=== PATIENT | female | born 1985 | race Caucasian/White ===

== ENCOUNTER 2017-10-13 14:24 | Emergency (ER) | payer MEDICAID, SELFPAY, OTHER ==
[2017-10-13] MEDS: NS 1,000 ML IV (14:58)
[2017-10-13] MEDS: ASPIRIN 81 MG CHEW TABLET PO (15:00)
[2017-10-13] MEDS: GI COCKTAIL 50ML BTL(HYOSCYAMINE/MAALOX/LIDOCAINE VISCOUS)(1:3:1) PO (15:05)
[2017-10-13 15:10] LABS: BASO % 0.7 % (0.0-1.0); EOS % 0.5 % (0.0-3.0); HEMATOCRIT 36.5 % (36.0-47.0); HEMOGLOBIN 12.7 g/dl (12.0-16.0); IMMATURE GRANULOCYTE % 0.4 % (0-0); LYMPH # 1.8 10^3/uL (1.5-4.5); LYMPH % 32.6 % (24.0-44.0); MEAN CORPUSCULAR HEMOGLOBIN 30.7 pg (27.0-33.0); MEAN CORPUSCULAR HGB CONC 34.8 g/dl (32.0-36.5); MEAN CORPUSCULAR VOLUME 88.2 fl (80.0-96.0); MONO # 0.4 10^3/uL (0.0-0.8); MONO % 6.4 % (0.0-5.0); NEUTROPHILS # 3.2 10^3/uL (1.8-7.7); NEUTROPHILS % 59.4 % (36.0-66.0); PLATELET COUNT, AUTOMATED 217 10^3/uL (150-450); RED BLOOD COUNT 4.14 10^6/uL (4.00-5.40); RED CELL DISTRIBUTION WIDTH 11.6 % (11.5-14.5); WHITE BLOOD COUNT 5.5 10^3/uL (4.0-10.0)
[2017-10-13 15:17] LABS: CONTROL LINE HCG INT CTR LINE PRESENT; HCG, SERUM QUALITATIVE NEGATIVE (NEGATIVE)
[2017-10-13 15:18] LABS: INR 1.07
[2017-10-13 15:21] LABS: D-DIMER QUANT 376.3 ng/ml (<500)
[2017-10-13 15:31] LABS: ALBUMIN 4.2 GM/DL (3.2-5.2); ALKALINE PHOSPHATASE 62 U/L (45-117); ALT/SGPT 16 U/L (12-78); ANION GAP 9 MEQ/L (8-16); AST/SGOT 11 U/L (7-37); BILIRUBIN,DIRECT 0.1 MG/DL (0.0-0.2); BILIRUBIN,TOTAL 0.5 MG/DL (0.2-1.0); BLOOD UREA NITROGEN 9 MG/DL (7-18); CALCIUM LEVEL 8.3 MG/DL (8.5-10.1); CARBON DIOXIDE LEVEL 26 MEQ/L (21-32); CHLORIDE LEVEL 107 MEQ/L (98-107); CPK CREATINE PHOSPHOKINASE 91 U/L (26-192); CREATININE FOR GFR 0.63 MG/DL (0.55-1.02); GLOMERULAR FILTRATION RATE > 60.0 (>60); GLUCOSE, FASTING 81 MG/DL (70-105); MB/CK RELATIVE INDEX 1.09 (< OR =4); POTASSIUM SERUM 3.7 MEQ/L (3.5-5.1); SODIUM LEVEL 142 MEQ/L (136-145); TOTAL PROTEIN 7.2 GM/DL (6.4-8.2); TROPONIN I < 0.02 NG/ML (< 0.10)
== END 2017-10-13 16:24 | disposition home or self-care (01) ==
LOC: M ED 14:24
DX: R07.89 Other chest pain (principal); Z82.49 Family history of ischemic heart disease and other diseases of the circulatory system
CPT/HCPCS: 71046

== ENCOUNTER → 2017-10-19 | Outpatient (CLI) | payer MEDICAID ==
[2017-10-19 14:04] LABS: VITAMIN B12 LEVEL 406 PG/ML
[2017-10-19 14:05] LABS: FOLATE 11.7 NG/ML
[2017-10-21 00:06] LABS: HOMOCYST(E)INE SERUM 15.8 umol/L (0.0-15.0)
== END ==
LOC: M LAB 13:00
DX: E72.11 Homocystinuria (principal)
CPT/HCPCS: 82746

== ENCOUNTER 2017-11-30 22:54 | Emergency (ER) | payer OTHER, MEDICAID ==
[2017-11-30] MEDS: METOCLOPRAMIDE INJ 10MG/2ML VIAL (J2765) IV ×2 (23:55)
[2017-11-30] MEDS: KETOROLAC 30 MG/ML VIAL (J1885) IV ×2 (23:55)
== END 2017-12-01 00:47 | disposition home or self-care (01) ==
LOC: M ED 22:54
DX: R51 Headache (principal); Q05.9 Spina bifida, unspecified; F17.200 Nicotine dependence, unspecified, uncomplicated
CPT/HCPCS: J1885

== ENCOUNTER 2018-04-07 21:22 | Emergency (ER) | payer OTHER ==
[2018-04-08] MEDS: NS 1,000 ML IV
[2018-04-08] MEDS: MORPHINE 2 MG/ML 1ML SYRINGE (J2270) IV (00:10)
[2018-04-08] MEDS: ONDANSETRON 4MG/2ML VIAL (J2405) IV (00:10)
[2018-04-08 00:32] LABS: INR 1.04; PARTIAL THROMBOPLASTIN TIME 30.3 SECONDS (25.4-37.6); PROTHROMBIN TIME 13.7 SECONDS (12.1-14.4)
[2018-04-08 00:34] LABS: BASO # 0.1 10^3/uL (0.0-0.2); BASO % 0.5 % (0.0-1.0); EOS # 0.1 10^3/uL (0.0-0.50); EOS % 1.2 % (0.0-3.0); HEMATOCRIT 39.5 % (36.0-47.0); HEMOGLOBIN 13.4 g/dl (12.0-15.5); IMMATURE GRANULOCYTE % 0.3 % (0-3.0); LYMPH # 1.8 10^3/uL (1.5-4.5); LYMPH % 17.5 % (24.0-44.0); MEAN CORPUSCULAR HEMOGLOBIN 30.5 pg (27.0-33.0); MEAN CORPUSCULAR HGB CONC 33.9 g/dl (32.0-36.5); MONO # 0.7 10^3/uL (0.0-0.8); MONO % 6.9 % (0.0-5.0); NEUTROPHILS # 7.4 10^3/uL (1.8-7.7); NEUTROPHILS % 73.6 % (36.0-66.0); PLATELET COUNT, AUTOMATED 237 10^3/uL (150-450); RED BLOOD COUNT 4.39 10^6/uL (4.00-5.40); RED CELL DISTRIBUTION WIDTH 11.7 % (11.5-14.5)
[2018-04-08 00:41] LABS: CONTROL LINE HCG INT CTR LINE PRESENT; HCG, SERUM QUALITATIVE NEGATIVE (NEGATIVE)
[2018-04-08 00:42] LABS: ALBUMIN 4.3 GM/DL (3.2-5.2); ALBUMIN/GLOBULIN RATIO 1.23 (1.00-1.93); ALKALINE PHOSPHATASE 97 U/L (45-117); ALT/SGPT 15 U/L (12-78); AMYLASE 63 U/L (25-115); ANION GAP 7 MEQ/L (8-16); AST/SGOT 7 U/L (7-37); BILIRUBIN,DIRECT 0.1 MG/DL (0.0-0.2); BILIRUBIN,TOTAL 0.3 MG/DL (0.2-1.0); BLOOD UREA NITROGEN 9 MG/DL (7-18); CALCIUM LEVEL 8.8 MG/DL (8.5-10.1); CARBON DIOXIDE LEVEL 30 MEQ/L (21-32); CHLORIDE LEVEL 105 MEQ/L (98-107); CREATININE FOR GFR 0.67 MG/DL (0.55-1.30); GLOMERULAR FILTRATION RATE > 60.0 (>60); GLUCOSE, FASTING 78 MG/DL (70-100); LIPASE 183 U/L (73-393); POTASSIUM SERUM 3.8 MEQ/L (3.5-5.1); SODIUM LEVEL 142 MEQ/L (136-145); TOTAL PROTEIN 7.8 GM/DL (6.4-8.2)
[2018-04-08 00:46] LABS: LACTIC ACID SEPSIS PROTOCOL 1.1 MMOL/L (0.4-2.0)
[2018-04-08] MEDS ORDERED: ISOVUE-370 76% 100ML VIAL (Q9967) As Ordered (00:48)
[2018-04-08 04:31] LABS: KETONE, URINE AUTO RFX NEGATIVE (NEGATIVE); LEUKOCYTE ESTERASE UR AUTO RFX NEGATIVE (NEGATIVE); RBC, URINE AUTO RFX 1 /HPF (0-3); SQUAM EPITHELIAL CELL UR AURFX 3 /HPF (0-6); WBC, URINE AUTO RFX 0 /HPF (0-3)
[2018-04-08 04:54] LABS: NITRITE, URINE AUTO RFX POSITIVE (NEGATIVE); SPECIFIC GRAVITY UR AUTO RFX >1.060 (1.002-1.035)
[2018-04-08] MEDS: DICYCLOMINE 10 MG CAP PO (05:30)
[2018-04-08] MEDS: KETOROLAC 30 MG/ML VIAL (J1885) IV (05:34)
== END 2018-04-08 05:43 | disposition home or self-care (01) ==
LOC: M ED 21:22
DX: R10.13 Epigastric pain (principal); Z87.19 Personal history of other diseases of the digestive system
CPT/HCPCS: J2405

== ENCOUNTER 2018-12-22 13:40 | Emergency (ER) | payer OTHER ==
[~2018-12-22] VITALS: Ht 147.3 cm; Wt 48.2 kg
[~2018-12-22 13:40] MED LIST: BENT10CA PO; IBUP-1022 PO; TYLE325T5 PO; VICO5TAB PO; ZOFR4TAB14 PO; [UNRECOGNIZED DRUG - REMARK]
--- NOTE | 2018-12-22 14:33 | REP ---
Clinical: Cough . Comparison: 10/13/2017 Technique: PA and lateral. Findings: The mediastinum and cardiac silhouette are normal. The lung lala are clear and without acute consolidation, effusion, or pneumothorax. The skeletal structures are intact and normal. Impression: 1. No acute cardiopulmonary process. Electronically Signed by Hayden Smith MD 12/22/2018 02:24 P
[2018-12-22 14:35] LABS: INFLUENZA A AMPLIFICATION POSITIVE (NEGATIVE); INFLUENZA B AMPLIFICATION NEGATIVE (NEGATIVE)
[2018-12-22] MEDS ORDERED: OSEL75CA PO (14:49)
[2018-12-22 14:55] VITALS: BP 105/62
== END 2018-12-22 14:57 | disposition home or self-care (01) ==
LOC: M ED 13:40
DX: J09.X9 Influenza due to identified novel influenza A virus with other manifestations (principal)

== ENCOUNTER 2020-06-06 10:26 | Emergency (ER) | payer OTHER ==
[~2020-06-06] VITALS: Ht 147.3 cm; Wt 50.6 kg
[~2020-06-06 10:26] MED LIST changes: +OSEL75CA PO
[2020-06-06 10:27] VITALS: BP 118/55
[2020-06-06] MEDS ORDERED: IBUP-1114 PO (10:31)
[2020-06-06] MEDS ORDERED: MOBI4TAB PO (10:56)
== END 2020-06-06 11:00 | disposition home or self-care (01) ==
LOC: M ED 10:26
DX: M77.11 Lateral epicondylitis, right elbow (principal)

== ENCOUNTER 2021-03-04 14:57 | Emergency (ER) | payer OTHER ==
[~2021-03-04] VITALS: Ht 147.3 cm; Wt 50.4 kg
[2021-03-04 14:57] VITALS: BP 121/65
[~2021-03-04 14:57] MED LIST changes: +IBUP-1114 PO; +MOBI4TAB PO
--- NOTE | 2021-03-04 15:48 | REP ---
INDICATION: CHEST PAIN. COMPARISON: 12/22/2018. TECHNIQUE: Single portable AP view of the chest was performed. FINDINGS: There is no acute infiltrate or pulmonary edema. Lungs are clear. The heart is not significantly enlarged. The mediastinal silhouette is unremarkable. The visualized osseous structures are intact. IMPRESSION: No acute pulmonary disease. <Electronically signed by Yaakov Barnes > 03/04/21 [id number]
[2021-03-04 16:23] LABS: BASO % 0.5 % (0.0-1.0); EOS # 0.1 10^3/uL (0.0-0.5); EOS % 0.8 % (0.0-3.0); HEMATOCRIT 41.9 % (36.0-47.0); LYMPH # 1.9 10^3/uL (1.5-5.0); LYMPH % 22.1 % (24.0-44.0); MEAN CORPUSCULAR HGB CONC 33.4 g/dl (32.0-36.5); MEAN CORPUSCULAR VOLUME 89.9 fl (80.0-96.0); MONO # 0.6 10^3/uL (0.0-0.8); MONO % 7.1 % (2.0-8.0); NEUTROPHILS # 5.9 10^3/uL (1.5-8.5); NEUTROPHILS % 69.3 % (36.0-66.0); PLATELET COUNT, AUTOMATED 225 10^3/uL (150-450); RED BLOOD COUNT 4.66 10^6/uL (4.00-5.40); WHITE BLOOD COUNT 8.5 10^3/uL (4.0-10.0)
[2021-03-04 16:33] LABS: INR 0.95; PROTHROMBIN TIME 12.9 SECONDS (12.5-14.3)
[2021-03-04 16:34] LABS: PARTIAL THROMBOPLASTIN TIME 28.1 SECONDS (24.2-38.5)
[2021-03-04 16:37] LABS: D-DIMER QUANT 284.07 ng/ml (<500)
[2021-03-04 17:01] LABS: ALBUMIN 4.4 GM/DL (3.2-5.2); ALT/SGPT 19 U/L (12-78); BILIRUBIN,DIRECT 0.1 MG/DL (0.0-0.2); BILIRUBIN,TOTAL 0.4 MG/DL (0.2-1.0); BLOOD UREA NITROGEN 16 MG/DL (7-18); CALCIUM LEVEL 9.2 MG/DL (8.5-10.1); CARBON DIOXIDE LEVEL 26 MEQ/L (21-32); CHLORIDE LEVEL 105 MEQ/L (98-107); CK-MB VALUE MASS < 1.0 NG/ML (<3.6); CPK CREATINE PHOSPHOKINASE 96 U/L (26-192); CREATININE FOR GFR 0.66 MG/DL (0.55-1.30); FREE T4 1.16 NG/DL (0.76-1.46); GLOMERULAR FILTRATION RATE > 60.0 (>60); GLUCOSE, FASTING 84 MG/DL (70-100); LIPASE 107 U/L (73-393); MB/CK RELATIVE INDEX 1.04 (< OR =4); NT-PRO BNP 31 PG/ML (<125); POTASSIUM SERUM 4.3 MEQ/L (3.5-5.1); SODIUM LEVEL 137 MEQ/L (136-145); THYROID STIMULATING HORMONE 0.757 uIU/ML (0.358-3.740); TOTAL PROTEIN 7.7 GM/DL (6.4-8.2); TROPONIN I < 0.02 NG/ML (< 0.10)
== END 2021-03-04 17:26 | disposition left against medical advice (07) ==
LOC: M ED 14:57
DX: Z53.21 Procedure and treatment not carried out due to patient leaving prior to being seen by health care provider (principal)

== ENCOUNTER 2021-03-27 16:04 | Emergency (ER) | payer OTHER ==
[~2021-03-27] VITALS: Ht 147.3 cm; Wt 50.7 kg
[2021-03-27 16:54] LABS: BASO # 0.1 10^3/uL (0.0-0.2); BASO % 0.7 % (0.0-1.0); EOS # 0.1 10^3/uL (0.0-0.5); EOS % 0.6 % (0.0-3.0); HEMATOCRIT 42.2 % (36.0-47.0); HEMOGLOBIN 14.1 g/dl (12.0-15.5); MEAN CORPUSCULAR HEMOGLOBIN 29.9 pg (27.0-33.0); MEAN CORPUSCULAR HGB CONC 33.4 g/dl (32.0-36.5); MEAN CORPUSCULAR VOLUME 89.4 fl (80.0-96.0); MONO # 0.4 10^3/uL (0.0-0.8); MONO % 4.8 % (2.0-8.0); NEUTROPHILS # 6.5 10^3/uL (1.5-8.5); NEUTROPHILS % 71.6 % (36.0-66.0); PLATELET COUNT, AUTOMATED 270 10^3/uL (150-450); RED BLOOD COUNT 4.72 10^6/uL (4.00-5.40)
[2021-03-27 17:12] LABS: ALBUMIN 4.5 GM/DL (3.2-5.2); ALT/SGPT 18 U/L (12-78); BILIRUBIN,DIRECT < 0.1 MG/DL (0.0-0.2); BILIRUBIN,TOTAL 0.3 MG/DL (0.2-1.0); LIPASE 93 U/L (73-393); TOTAL PROTEIN 7.6 GM/DL (6.4-8.2)
[2021-03-27 17:31] LABS: INR 0.96
--- NOTE | 2021-03-27 17:31 | REP ---
INDICATION: CHEST PAIN COMPARISON: 12/22/2018, 03/04/2021 TECHNIQUE: Portable AP view of the chest FINDINGS: The mediastinum and cardiac silhouette are stable and within normal limits for portable technique. The lung lala are clear without acute consolidation, effusion, or pneumothorax. Skeletal structures are intact. IMPRESSION: No acute cardiopulmonary process appreciated. <Electronically signed by Hayden Smith > 03/27/21 1138
[2021-03-27 17:42] LABS: D-DIMER QUANT < 270 ng/ml (<500)
[2021-03-27] MEDS ORDERED: ISOVUE-370 76% 100ML VIAL As Ordered ONE (18:02)
--- NOTE | 2021-03-27 18:56 | REPVR ---
PROCEDURE INFORMATION: Exam: CTA Chest With Contrast Exam date and time: 03/27/2021 6:19 PM Age: 36 years old Clinical indication: Pain; Chest pressure; Additional info: Pleuritic chest pain RO pe TECHNIQUE: Imaging protocol: Computed tomographic angiography of the chest with contrast. 3D rendering (Not supervised by radiologist): MIP and/or 3D reconstructed images were created by the technologist. Radiation optimization: All CT scans at this facility use at least one of these dose optimization techniques: automated exposure control; mA and/or kV adjustment per patient size (includes targeted exams where dose is matched to clinical indication); or iterative reconstruction. Contrast material: ISOVUE 370; Contrast volume: 100 ml; Contrast route: INTRAVENOUS (IV); COMPARISON: CR PORTABLE CHEST X-RAY 03/27/2021 5:09 PM FINDINGS: Pulmonary arteries: There are no pulmonary emboli. Aorta: There is no aortic dissection or aneurysm. Thyroid: Complex appearing hypoattenuating nodule in the left lobe of the thyroid containing internal calcifications measures 1 x 1.3 x 2.4 cm. Correlation with thyroid ultrasound suggested. Lungs: Unremarkable. No consolidation. No masses. Pleural spaces: Unremarkable. No pneumothorax. No pleural effusion. Heart: Unremarkable. No cardiomegaly. No pericardial effusion. Lymph nodes: Unremarkable. No enlarged lymph nodes. Bones/joints: Unremarkable. No acute fracture. Soft tissues: Unremarkable. IMPRESSION: 1. Complex appearing hypoattenuating nodule in the left lobe of the thyroid containing internal calcifications measures 1 x 1.3 x 2.4 cm. Further evaluation with non-emergent thyroid ultrasound is recommended. 2. There is no aortic dissection or aneurysm. 3. There are no pulmonary emboli. 4. No acute pulmonary parenchymal abnormalities. COMMENTS: Consistent with the [employer]'s Incidental Findings Committee white paper (J Am Wilson Radiol 2015): In patients aged 35 years and older with an incidental thyroid nodule equal to or greater than 1.[address], MRI or extrathyroidal US, further evaluation with dedicated thyroid US is recommended for patients with normal life expectancy and without comorbidities. For smaller nodules without suspicious features, no further evaluation or follow up is recommended. Electronically signed by: Kaleb Murray On 03/27/2021 18:56:02 PM
[2021-03-27 19:01] VITALS: BP 114/59
--- NOTE | 2021-03-27 19:27 | ECGEPIP ---
[facility] - ED Test Date: 2021-03-27 Pat Name: DAGMAR RUIZ Department: Room: - Gender: Female Assistant Professor Of Nursing: PAULIE : 1985 Requested By: Cynthia Chong Order Number: [id number] Reading MD: Cynthia Chong Measurements Intervals [place] Rate: 77 P: 60 MT: 140 QRS: 99 QRSD: 74 T: 55 QT: 370 QTc: 418 Interpretive Statements Normal sinus rhythm with sinus arrhythmia Rightward axis Nonspecific ST T wave changes Delayed R wave progression cw 10/13/[address] T wave changes Electronically Signed on 03-27-2021 19:27:33 EDT by Cynthia Chong
--- NOTE | 2021-03-28 06:22 | ED PDOC ---
Post-Departure Follow-Up certified letter sent to pt re formal read of cta chest. obtain pcp name and fax . if no pcp refer to [facility] and fax Cynthia Adair MD Mar 28, 2021 06:22
== END 2021-03-27 19:45 | disposition home or self-care (01) ==
LOC: M ED 16:04
DX: R07.9 Chest pain, unspecified (principal); E04.1 Nontoxic single thyroid nodule; R06.02 Shortness of breath; R51.9 Headache, unspecified
CPT/HCPCS: 36415; 71045; 71275; 80047; 80076; 83690; 84702; 85025; 85379; 85610; 93005; 93041; 94760; 99285; Q9967

== ENCOUNTER → 2022-08-04 | Outpatient (REF) | payer OTHER ==
[2022-08-04 23:24] LABS: GC DNA AMPLIFICATION NEGATIVE (NEGATIVE)
== END ==
LOC: M LAB REF 21:27
PROVIDERS: ATTEND Physician Assistant
DX: R30.0 Dysuria (principal)

== ENCOUNTER → 2022-08-05 | Outpatient (CLI) | payer OTHER ==
[2022-08-07 10:54] LABS: HEPATITIS C VIRUS ABY INDEX 0.2 INDEX (<0.8); HIV 1&2 SCREEN CENTAUR NEGATIVE (NEGATIVE)
== END ==
LOC: M LAB 09:51
PROVIDERS: ATTEND Physician Assistant
DX: R30.0 Dysuria (principal)

== ENCOUNTER → 2022-12-14 | Outpatient (REF) | payer OTHER ==
[2022-12-14 16:59] LABS: BASO # 0.1 10^3/uL (0.0-0.2); BASO % 0.8 % (0.0-1.0); EOS % 0.6 % (0.0-3.0); HEMATOCRIT 40.5 % (36.0-47.0); HEMOGLOBIN 13.6 g/dl (12.0-15.5); LYMPH # 1.5 10^3/uL (1.5-5.0); LYMPH % 23.2 % (24.0-44.0); MEAN CORPUSCULAR HEMOGLOBIN 30.4 pg (27.0-33.0); MEAN CORPUSCULAR HGB CONC 33.6 g/dl (32.0-36.5); MEAN CORPUSCULAR VOLUME 90.6 fl (80.0-96.0); MONO # 0.4 10^3/uL (0.0-0.8); NEUTROPHILS # 4.5 10^3/uL (1.5-8.5); NEUTROPHILS % 69.2 % (36.0-66.0); PLATELET COUNT, AUTOMATED 273 10^3/uL (150-450); RED BLOOD COUNT 4.47 10^6/uL (4.00-5.40); WHITE BLOOD COUNT 6.5 10^3/uL (4.0-10.0)
[2022-12-14 17:25] LABS: FERRITIN 44.8 NG/ML (7.3-270.7); FOLATE 12.1 NG/ML (>5.4); IRON (FE) 98 UG/DL (50-170); PERCENT SATURATION 36.4 % (13.2-45.0); TOTAL IRON BINDING CAPACITY 269 UG/DL (250-425)
[2022-12-14 17:26] LABS: VITAMIN B12 LEVEL 217 PG/ML (211-911)
[2022-12-14 17:33] LABS: INR 0.98; PROTHROMBIN TIME 13.2 SECONDS (12.5-14.5)
[2022-12-14 17:56] LABS: HIV 1&2 SCREEN CENTAUR NEGATIVE (NEGATIVE)
[2022-12-14 18:04] LABS: HEPATITIS C VIRUS ABY INDEX 0.1 INDEX (<0.8)
== END ==
LOC: M LAB REF 16:08
PROVIDERS: ATTEND Nurse Practitioner Family
DX: E72.11 Homocystinuria (principal); Z11.9 Encounter for screening for infectious and parasitic diseases, unspecified

== ENCOUNTER → 2023-05-25 | Outpatient (REF) | payer OTHER ==
[~2023-05-25] MED LIST changes: +B12-1CHW PO; +MECO10002 PO
== END ==
LOC: M SFHCWAGY 15:09
PROVIDERS: ATTEND Obstetrics & Gynecology
DX: Z12.4 Encounter for screening for malignant neoplasm of cervix (principal)

== ENCOUNTER → 2023-06-13 | Outpatient (CLI) | payer OTHER | LOC: M WHC 06-12 08:05 | PROVIDERS: ATTEND Obstetrics & Gynecology | DX: N93.9 Abnormal uterine and vaginal bleeding, unspecified (principal) ==

== ENCOUNTER → 2023-06-27 | Outpatient (REF) | payer OTHER ==
[~2023-06-27] MED LIST changes: +MECL-169 PO; +PSEU-52 PO
== END ==
LOC: M LAB REF 16:21
PROVIDERS: ATTEND Nurse Practitioner Family
DX: R42 Dizziness and giddiness (principal)

== ENCOUNTER → 2023-07-22 | Outpatient (REF) | payer OTHER ==
[2023-07-22 18:19] LABS: APPEARANCE, URINE HAZY (CLEAR); BACTERIA, URINE AUTO NEGATIVE (NEGATIVE); BILIRUBIN, URINE AUTO NEGATIVE (NEGATIVE); BLOOD, URINE BLOOD 1+ (NEGATIVE); COLOR, URINE YELLOW (YELLOW); GLUCOSE, URINE (UA) AUTO NEGATIVE (NEGATIVE); KETONE, URINE AUTO TRACE mg/dL (NEGATIVE); LEUKOCYTE ESTERASE, URINE AUTO 3+ (NEGATIVE); MUCUS, URINE SMALL (NEGATIVE); NITRITE, URINE AUTO NEGATIVE (NEGATIVE); PROTEIN, URINE AUTO NEGATIVE (NEGATIVE); RBC, URINE AUTO 1 /HPF (0-3); SPECIFIC GRAVITY URINE AUTO 1.025 (1.002-1.035); SQUAMOUS EPITHELIAL CELL UR AU 11 /HPF (0-6); UROBILINOGEN, URINE AUTO 0.2 mg/dL (0.0-2.0); WBC, URINE AUTO 13 /HPF (0-3)
== END ==
LOC: M LAB REF 17:41
PROVIDERS: ATTEND Physician Assistant Medical
DX: N39.0 Urinary tract infection, site not specified (principal)

== ENCOUNTER → 2023-09-06 | Outpatient (REF) | payer OTHER ==
[2023-09-06 19:13] LABS: CHLAMYDIA DNA AMPLIFICATION NEGATIVE (NEGATIVE); GC DNA AMPLIFICATION NEGATIVE (NEGATIVE)
[2023-09-07 15:05] LABS: CHLAMYDIA DNA AMPLIFICATION NEGATIVE (NEGATIVE); GC DNA AMPLIFICATION NEGATIVE (NEGATIVE)
== END ==
LOC: M LAB REF 16:18
PROVIDERS: ATTEND Nurse Practitioner Family
DX: N89.8 Other specified noninflammatory disorders of vagina (principal)

== ENCOUNTER → 2024-04-30 | Outpatient (REF) | payer OTHER ==
[2024-04-30 19:16] LABS: THYROID STIMULATING HORMONE 1.11 uIU/ML (0.55-4.78); TOTAL 25(OH) VITAMIN D 34.6 NG/ML (20.0-100.0)
[2024-04-30 19:19] LABS: CHOLESTEROL RISK RATIO 3.32 (<5); HDL CHOLESTEROL 54.2 MG/DL (>40); NON-HDL-C 125.8 MG/DL
== END ==
LOC: M LAB REF 16:27
PROVIDERS: ATTEND Nurse Practitioner Family
DX: Z13.29 Encounter for screening for other suspected endocrine disorder (principal); Z13.1 Encounter for screening for diabetes mellitus; Z13.220 Encounter for screening for lipoid disorders; E55.9 Vitamin D deficiency, unspecified

== ENCOUNTER → 2024-07-07 | Outpatient (REF) | payer OTHER | LOC: M SFHCWAGY 17:03 | PROVIDERS: ATTEND Obstetrics & Gynecology | DX: N93.9 Abnormal uterine and vaginal bleeding, unspecified (principal) ==

== ENCOUNTER 2024-07-18 15:34 | Emergency (ER) | payer OTHER ==
[~2024-07-18] VITALS: Ht 147.3 cm; Wt 52.2 kg
[~2024-07-18 15:34] MED LIST changes: +CYAN1000VL IM
[2024-07-18] MEDS: ONDANSETRON 4MG 2ML VIAL IV ONE (18:09)
[2024-07-18 19:12] LABS: HCG, SERUM QUALITATIVE NEGATIVE (NEGATIVE)
[2024-07-18] MEDS ORDERED: ISOVUE-370 76% 100ML VIAL As Ordered ONE (19:18)
[2024-07-18] MEDS: KETOROLAC 30 MG/ML 1ML VIAL IV ONE (20:23)
[2024-07-18] MEDS ORDERED: IBUP-1022 PO (21:42)
[2024-07-18] MEDS ORDERED: ONDA-282 PO (21:42)
[2024-07-18 21:51] VITALS: BP 118/65; TEMP 97; O2SAT 95
== END 2024-07-18 21:52 | disposition home or self-care (01) ==
LOC: M ED 15:34
DX: R10.9 Unspecified abdominal pain (principal); N83.12 Corpus luteum cyst of left ovary; R00.0 Tachycardia, unspecified; D64.9 Anemia, unspecified; F17.220 Nicotine dependence, chewing tobacco, uncomplicated; Z79.83 Long term (current) use of bisphosphonates; Z79.899 Other long term (current) drug therapy

== ENCOUNTER 2024-07-25 06:43 | Day surgery (SDC) | payer OTHER ==
[2024-07-25] VITALS (7 sets, daily range): BP systolic 101–116; BP diastolic 54–58; TEMP 97.1–98.7; O2SAT 99–100
[~2024-07-25] VITALS: Ht 147.3 cm; Wt 52.2 kg
[~2024-07-25 06:43] MED LIST changes: +ONDA-282 PO
[2024-07-25] MEDS ORDERED: fentaNYL 100 MCG/2 ML INJECTION As Ordered ONE (07:02)
[2024-07-25] MEDS ORDERED: MIDAZOLAM INJ 2MG/2ML VIAL As Ordered ONE (07:02)
[2024-07-25] MEDS ORDERED: HYDROmorphone HCL 2MG/ML 1ML VIAL As Ordered ONE (07:02)
[2024-07-25] MEDS ORDERED: ROCURONIUM BROMIDE 50MG/5ML VIAL As Ordered ONE (07:03)
[2024-07-25] MEDS ORDERED: LIDOCAINE 2% 100MG/5ML SDV (FOR ANES.) As Ordered ONE (07:03)
[2024-07-25] MEDS ORDERED: propofoL 200 MG/20 ML VIAL As Ordered ONE (07:03)
[2024-07-25] MEDS ORDERED: SUGAMMADEX SODIUM 500 MG/5 ML VIAL (BRIDION) As Ordered ONE (07:03)
[2024-07-25] MEDS ORDERED: KETOROLAC 60MG 2ML VIAL As Ordered ONE (07:03)
[2024-07-25] MEDS ORDERED: METOCLOPRAMIDE INJ 10MG/2ML VIAL As Ordered ONE (07:03)
[2024-07-25] MEDS ORDERED: ONDANSETRON 4MG 2ML VIAL As Ordered ONE (07:03)
[2024-07-25] MEDS ORDERED: ACETAMINOPHEN 1000MG 100ML IV BAG As Ordered ONE (07:04)
[2024-07-25 07:29] LABS: HEMATOCRIT 38.8 % (36.0-47.0); HEMOGLOBIN 13.2 g/dl (12.0-15.5); MEAN CORPUSCULAR HEMOGLOBIN 30.4 pg (27.0-33.0); MEAN CORPUSCULAR VOLUME 89.4 fl (80.0-96.0); PLATELET COUNT, AUTOMATED 265 10^3/uL (150-450); RED BLOOD COUNT 4.34 10^6/uL (4.00-5.40); WHITE BLOOD COUNT 6.3 10^3/uL (4.0-10.0)
[2024-07-25] MEDS: ceFAZolin SOD 2 GM in IV 1 EA IV ONE (07:59)
[2024-07-25] MEDS ORDERED: ePHEDrine SULFATE 25 MG/5 ML(5MG/ML) SYRINGE As Ordered ONE (08:15)
[2024-07-25] MEDS: METHYLENE BLUE 0.5% (5MG/ML) 10 ML AMP (PROVAYBLUE) As Ordered ONE (08:52)
[2024-07-25] MEDS ORDERED: PERCOCET 5MG/325MG TAB PO PRN (09:50)
[2024-07-25] MEDS ORDERED: MORPHINE 4 MG/ML 1ML VIAL IV PRN (09:50)
[2024-07-25] MEDS ORDERED: PROMETHAZINE 25MG/ML 1ML VIAL IV PRN (09:50)
[2024-07-25] MEDS ORDERED: IBUP80TA PO (09:57)
[2024-07-25] MEDS ORDERED: PERCOCET PO (09:57)
[2024-07-25] MEDS ORDERED: COLA100C5 PO (09:57)
[2024-07-25] MEDS: fentaNYL 100 MCG/2 ML INJECTION IV PRN (10:16)
[2024-07-25] MEDS: ONDANSETRON 4MG 2ML VIAL IV PRN (10:17)
[2024-07-25] MEDS: oxyCODONE 5MG TAB PO PRN (10:30)
[2024-07-25] MEDS: LR 1,000 ML IV SCH (12:26)
[2024-07-25] MEDS: PERCOCET 5MG/325MG TAB PO PRN (12:29)
[2024-07-25] MEDS: KETOROLAC 30 MG/ML 1ML VIAL IV SCH (14:49)
[2024-07-25] MEDS ORDERED: DOCUSATE SODIUM 100MG CAPSULE PO SCH (21:00)
[2024-07-26] MEDS ORDERED: IBUPROFEN 800 MG TAB PO SCH (17:20)
== END 2024-07-25 18:00 | disposition home or self-care (01) ==
LOC: M SDC 06:43 → UNDOADMOB 06:44 → M RR INP 06:44 → M PED 11:15 → M SDC 18:00 → UNDODISOB 18:00
PROVIDERS: ATTEND Obstetrics & Gynecology
DX: N93.9 Abnormal uterine and vaginal bleeding, unspecified (principal); R10.2 Pelvic and perineal pain; D64.9 Anemia, unspecified; N73.6 Female pelvic peritoneal adhesions (postinfective); F17.220 Nicotine dependence, chewing tobacco, uncomplicated
CPT/HCPCS: 36415; 58571; 81025; 85027; 86850; 86900; 86901; 88307; 96361; 96374; J0131; J0665; J0690; J1100; J1171; J1885; J2250; J2405; J2765; J3010; Q9968; S2900

== ENCOUNTER → 2025-01-05 | Outpatient (CLI) | payer OTHER ==
[~2025-01-05] MED LIST changes: +COLA100C5 PO; +IBUP80TA PO; +PERCOCET PO
== END ==
LOC: M WUC 15:17
PROVIDERS: ATTEND Nurse Practitioner Family
DX: R05.8 Other specified cough (principal)

== ENCOUNTER → 2025-01-27 | Outpatient (CLI) | payer OTHER | LOC: M RAD 14:00 | PROVIDERS: ATTEND Nurse Practitioner Family | DX: E04.1 Nontoxic single thyroid nodule (principal) ==

== ENCOUNTER → 2025-05-11 | Outpatient (CLI) | payer OTHER ==
[2025-05-11 12:30] LABS: BASO # 0.0 10^3/uL (0.0-0.2); BASO % 0.7 % (0.0-1.0); EOS # 0.0 10^3/uL (0.0-0.5); EOS % 0.5 % (0.0-3.0); LYMPH # 1.4 10^3/uL (1.5-5.0); LYMPH % 24.4 % (24.0-44.0); MONO # 0.4 10^3/uL (0.0-0.8); MONO % 6.4 % (2.0-8.0); NEUTROPHILS # 3.8 10^3/uL (1.5-8.5); NEUTROPHILS % 67.5 % (36.0-66.0); PLATELET COUNT, AUTOMATED 283 10^3/uL (150-450)
[2025-05-11 13:01] LABS: ALT/SGPT 16 U/L (7.0-40); AST/SGOT 16 U/L (<34); CALCIUM LEVEL 9.1 MG/DL (8.5-10.1); CARBON DIOXIDE LEVEL 30 MMOL/L (20-31); CHLORIDE LEVEL 103 MMOL/L (98-107); CHOLESTEROL LEVEL 178 MG/DL (<200); CHOLESTEROL RISK RATIO 3.39 (<5); CREATININE FOR GFR 0.74 MG/DL (0.55-1.30); GLOMERULAR FILTRATION RATE > 90.0 (>60); LDL CHOLESTEROL 114.5 MG/DL (<100); NON-HDL-C 125.5 MG/DL; POTASSIUM SERUM 4.5 MMOL/L (3.5-5.1); SODIUM LEVEL 142 MMOL/L (136-145); TRIGLYCERIDES LEVEL 55 MG/DL (<150)
== END ==
LOC: M LAB 11:43
PROVIDERS: ATTEND Nurse Practitioner Family
DX: E66.3 Overweight (principal)

== ENCOUNTER 2025-06-10 10:14 | Day surgery (SDC) | payer OTHER ==
[~2025-06-10] VITALS: Ht 147.3 cm; Wt 54.2 kg
[~2025-06-10 10:14] MED LIST changes: +FAMO1TAB11 PO; +FLUTISP; -IBUP-1022 PO; +IBUP600T42 PO; +KETOROLAC 30 MG/ML 1 ML VIAL As Ordered ONE; +LIDOCAINE 2% 100 MG/5 ML SDV (FOR ANES.) As Ordered ONE; +LORA-1041 PO; +MIDAZOLAM INJ 2 MG/2 ML VIAL As Ordered ONE; +ONDANSETRON 4MG 2ML VIAL As Ordered ONE; +ROCURONIUM BROMIDE 50MG/5ML VIAL As Ordered ONE; +SUCCINYLCHOLINE 100MG/5ML SYRINGE As Ordered ONE; +dexAMETHasone 4 MG/ML 1 ML VIAL As Ordered ONE
[2025-06-10] MEDS: LR 1,000 ML IV SCH (10:50)
[2025-06-10] MEDS ORDERED: REMIFENTANIL 1MG VIAL As Ordered ONE (11:39)
[2025-06-10] MEDS ORDERED: GLYCOPYRROLATE INJ 0.2 MG/ML 2 ML VIAL As Ordered ONE (11:43)
[2025-06-10] MEDS ORDERED: PHENYLephrine 500MCG 5ML (100MCG/ML) SYRINGE As Ordered ONE (12:13)
[2025-06-10] MEDS: METHYLENE BLUE 0.5% (5 MG/ML) 10 ML AMP As Ordered ONE (12:48)
[2025-06-10] MEDS: EPINEPHrine 1 MG/ML INJ 30 ML MD-VIAL As Ordered ONE (12:50)
[2025-06-10] MEDS: LIDOCAINE W/EPINEPHrine 1% 20 ML VIAL As Ordered ONE (14:22)
[2025-06-10] MEDS ORDERED: ONDANSETRON 4MG 2ML VIAL IV PRN (14:40)
[2025-06-10] MEDS ORDERED: LR 1,000 ML IV SCH (14:40)
[2025-06-10] MEDS: HYDROMORPHONE HCL 0.5 MG/0.5 ML SYRINGE IV PRN (15:16)
[2025-06-10 16:15] VITALS: BP 118/57; TEMP 97.8; O2SAT 99
== END 2025-06-10 16:23 | disposition home or self-care (01) ==
LOC: M SDC 10:14
PROVIDERS: ATTEND Otolaryngology
DX: C73 Malignant neoplasm of thyroid gland (principal); F17.220 Nicotine dependence, chewing tobacco, uncomplicated; Z90.710 Acquired absence of both cervix and uterus; Z88.8 Allergy status to other drugs, medicaments and biological substances
CPT/HCPCS: 60220; 88307; J0169; J0330; J1100; J1171; J1596; J1885; J2250; J2371; J2405; J3010; Q9968

== ENCOUNTER → 2025-07-01 | Outpatient (CLI) | payer OTHER ==
[~2025-07-01] MED LIST changes: -KETOROLAC 30 MG/ML 1 ML VIAL As Ordered ONE; -LIDOCAINE 2% 100 MG/5 ML SDV (FOR ANES.) As Ordered ONE; -MIDAZOLAM INJ 2 MG/2 ML VIAL As Ordered ONE; -ONDANSETRON 4MG 2ML VIAL As Ordered ONE; -ROCURONIUM BROMIDE 50MG/5ML VIAL As Ordered ONE; -SUCCINYLCHOLINE 100MG/5ML SYRINGE As Ordered ONE; -dexAMETHasone 4 MG/ML 1 ML VIAL As Ordered ONE
[2025-07-01 18:20] LABS: PTH INTACT 53.9 PG/ML (18.5-88.0)
[2025-07-01 18:22] LABS: FREE T4 1.14 NG/DL (0.89-1.76)
== END ==
LOC: M LAB 17:10
PROVIDERS: ATTEND Otolaryngology
DX: C73 Malignant neoplasm of thyroid gland (principal)

== ENCOUNTER 2025-08-06 09:38 | Observation (INO) | payer OTHER ==
[2025-08-06] VITALS (7 sets, daily range): BP systolic 104–118; BP diastolic 53–62; TEMP 98.7–99.4; O2SAT 95–97
[~2025-08-06] VITALS: Ht 147.3 cm; Wt 56.1 kg
[~2025-08-06 09:38] MED LIST changes: +DOCU100C16 PO; +MECL-86 PO; +dexAMETHasone 4 MG/ML 1 ML VIAL IV ONE
[2025-08-06] MEDS ORDERED: ACETAMINOPHEN 1000MG/100ML IV BAG As Ordered ONE (12:55)
[2025-08-06] MEDS ORDERED: dexAMETHasone 4 MG/ML 1 ML VIAL As Ordered ONE (12:56)
[2025-08-06] MEDS ORDERED: ONDANSETRON 4MG/2ML VIAL As Ordered ONE (12:56)
[2025-08-06] MEDS ORDERED: SUCCINYLCHOLINE 100MG/5ML SYRINGE As Ordered ONE (12:56)
[2025-08-06] MEDS ORDERED: SUGAMMADEX SODIUM 500 MG/5 ML VIAL As Ordered ONE (12:57)
[2025-08-06] MEDS ORDERED: LIDOCAINE 2% 100 MG/5 ML SDV (FOR ANES.) As Ordered ONE (12:57)
[2025-08-06] MEDS ORDERED: MIDAZOLAM INJ 2 MG/2 ML VIAL As Ordered ONE (12:58)
[2025-08-06] MEDS ORDERED: REMIFENTANIL 1MG VIAL As Ordered ONE (12:58)
[2025-08-06] MEDS ORDERED: ROCURONIUM BROMIDE 50MG/5ML VIAL As Ordered ONE (13:44)
[2025-08-06] MEDS: EPINEPHrine 1 MG/ML INJ 30 ML MD-VIAL As Ordered ONE (14:51)
[2025-08-06] MEDS: METHYLENE BLUE 0.5% (5 MG/ML) 10 ML AMP As Ordered ONE (14:51)
[2025-08-06] MEDS ORDERED: dexmedeTOMIDine (4 MCG/ML) 200 MCG/50 ML BTL As Ordered ONE (16:02)
[2025-08-06] MEDS: LIDOCAINE W/EPINEPHrine 1% 20 ML VIAL As Ordered ONE (16:40)
[2025-08-06] MEDS: ONDANSETRON 4MG/2ML VIAL IV PRN (17:23)
[2025-08-06] MEDS: HYDROMORPHONE HCL 0.5 MG/0.5 ML SYRINGE IV PRN (17:26)
[2025-08-06] MEDS: NS (Normal Saline) 0.9% 1,000 ML IV SCH (18:33)
[2025-08-06] MEDS: dexAMETHasone 4 MG/ML 1 ML VIAL IV SCH (20:10)
[2025-08-06] MEDS: ACETAMINOPHEN 325 MG TAB PO PRN (22:46)
[2025-08-07 04:17] VITALS: BP 108/59; TEMP 98.8; O2SAT 96
[2025-08-07 07:32] VITALS: BP 103/55; TEMP 98.8; O2SAT 95
[2025-08-07 08:02] LABS: BASO # 0.0 10^3/uL (0.0-0.2); BASO % 0.1 % (0.0-1.0); EOS # 0.0 10^3/uL (0.0-0.5); EOS % 0.0 % (0.0-3.0); LYMPH # 0.8 10^3/uL (1.5-5.0); LYMPH % 6.2 % (24.0-44.0); MONO # 0.2 10^3/uL (0.0-0.8); MONO % 1.9 % (2.0-8.0); NEUTROPHILS # 11.8 10^3/uL (1.5-8.5); NEUTROPHILS % 91.3 % (36.0-66.0); PLATELET COUNT, AUTOMATED 253 10^3/uL (150-450)
[2025-08-07 08:34] LABS: ALT/SGPT 71 U/L (7.0-40); AST/SGOT 35 U/L (<34); CALCIUM LEVEL 8.4 MG/DL (8.5-10.1); CARBON DIOXIDE LEVEL 26 MMOL/L (20-31); CHLORIDE LEVEL 105 MMOL/L (98-107); CREATININE FOR GFR 0.58 MG/DL (0.55-1.30); GLOMERULAR FILTRATION RATE > 90.0 (>60); MAGNESIUM LEVEL 1.6 MG/DL (1.8-2.4); POTASSIUM SERUM 4.3 MMOL/L (3.5-5.1); SODIUM LEVEL 140 MMOL/L (136-145)
[2025-08-07 08:35] LABS: FREE T4 1.10 NG/DL (0.89-1.76)
[2025-08-07] MEDS: FIORICET TAB PO ONE (09:05)
[2025-08-07] MEDS: MAG SULF 1GM/100ML (MAG RUN) 1 GM in IV 1 EA IV SCH (10:10)
[2025-08-07 11:48] VITALS: BP 103/58; TEMP 98.3; O2SAT 97
[2025-08-07] MEDS ORDERED: CALC500T61 PO (12:28)
[2025-08-07] MEDS ORDERED: LEVO88TA3 PO (12:28)
== END 2025-08-07 14:36 | disposition home or self-care (01) ==
LOC: M SDC 09:38 → M ED INP 17:44 → M MSPAV 18:05
PROVIDERS: ADMIT Internal Medicine; ATTEND Internal Medicine
DX: C73 Malignant neoplasm of thyroid gland (principal); D64.9 Anemia, unspecified; F17.220 Nicotine dependence, chewing tobacco, uncomplicated
CPT/HCPCS: 36415; 60260; 80053; 82330; 83735; 83970; 84439; 84443; 85025; 88307; 96361; 96374; 96376; J0131; J0165; J0330; J1100; J1171; J2250; J2405; J3010; J3475; J3490